=== PATIENT | male | born 1985 | race Caucasian/White ===

== ENCOUNTER 2016-07-09 18:44 | Emergency (ER) | payer OTHER ==
[~2016-07-09] VITALS: Ht 170.2 cm; Wt 104.3 kg
[~2016-07-09 18:44] MED LIST: ALBUTEROL0.63 MG/3 INH/SOL; ALBUTEROL2.5 MG/3 M INH/SOL; ALPRAZOLAM1 MG PO; ATIVAN0.5 M1 PO; AZITHROMYC200 MG/5 M PO; BENZONATATE200 M1 PO; CLEOCIN HCL300 M1 PO; CLINDAMYCI75 MG/5 M1 PO; HYDROCODONE/ACE1 TA1 PO; LEVSIN/SL0.125 MG SL; MEDROL DOSEPAK1 PAC PO; MEDROL4 M2 PO; MOBIC15 M1 PO; MOTRIN 400MG (400 MG PO; MOTRIN 600 MG600 MG PO; NOVAPLUS V0.09 MG/Ac INH; ORAPRED15 MG/5 ML PO; PERCOCET 325 MG1 TA2 PO; PERCOCET 5-3251 EACH PO; PROVENTIL HFA6.7 GM INH; PROVENTIL0.09 MG/A1 INH; ROBITUSSIN W/CO10 ML PO; SERTRALINE HYDR50 MG PO; TESSALON PERLE100 MG PO; TRAMADOL50 MG PO; VENTOLIN1 PUF INH; ZITHROMAX Z-PA250 M1 PO; ZOFRAN4 M1 SL; nebulizer MC
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
--- NOTE | 2016-07-09 19:57 | RADIOLOGY REPORT ---
EXAMINATION: Chest and left RIBS CLINICAL INFORMATION: Left rib pain. COMPARISON: Chest x-ray 09/14/2015 TECHNIQUE: Single view chest with expiration. 3 oblique views of left ribs. FINDINGS: No acute abnormality. Lungs are clear. No consolidation, pneumothorax, or pleural effusion. The cardiomediastinal silhouette and pulmonary vasculature are normal. Osseous structures are unremarkable. Ribs are intact. No fractures are identified. IMPRESSION: Unremarkable examination.
[2016-07-09] MEDS ORDERED: ROXICODONE5 M1 PO (20:26)
[2016-07-09] MEDS ORDERED: MOBIC15 M1 PO (20:26)
[2016-07-09 20:35] VITALS: BP 168/105
== END 2016-07-09 20:38 ==
LOC: ERH 18:44
DX: S20.211A Contusion of right front wall of thorax, initial encounter (principal); V86.59XA Driver of other special all-terrain or other off-road motor vehicle injured in nontraffic accident, initial encounter
CPT/HCPCS: 71100-LT

== ENCOUNTER 2016-07-26 22:22 | Emergency (ER) | payer OTHER ==
[~2016-07-26] VITALS: Ht 170.2 cm; Wt 108.9 kg
[~2016-07-26 22:22] MED LIST changes: +ROXICODONE5 M1 PO
[2016-07-26 22:56] VITALS: BP 197/85
--- NOTE | 2016-07-26 23:17 | ED GENERAL ADULT ---
History of Present Illness General Chief Complaint: General Adult Stated Complaint: PT LYMPH NODE IS SWOLLEN ON THE LEFT SIDE Source: patient, old records, friend Exam Limitations: no limitations Vital Signs & Intake/Output Vital Signs & Intake/Output Vital Signs Date Time Temp Pulse Resp B/P Pulse O2 O2 Flow FiO2 Ox Delivery Rate 07/26 2256 99.0 124 18 197/85 98 Room Air ED Intake and Output 07/27 0000 07/26 1200 Intake Total 0 Output Total Balance 0 Intake, Oral 0 Patient 240 lb Weight Allergies Coded Allergies: Penicillins (Severe, THROAT CLOSURE 04/21/16) amoxicillin (Intermediate, ITCHING AND VOMITING 04/21/16) acetaminophen (From VICODIN) (UPSET STOMACH 07/09/16) hydrocodone (From VICODIN) (UPSET STOMACH 07/09/16) lactose (LACTOSE INTOLERANT 05/17/16) tramadol (SWELLING 07/09/16) Reconcile Medications Albuterol Sulfate (Proventil Hfa) 90 MCG HFA.AER.AD 2 PUF INH Q4 cough Benzonatate 200 MG CAPSULE 1 CAP PO TIDPRN cough Clindamycin Palmitate HCl (Clindamycin Pediatric) 75 MG/5 ML SOLN.RECON 20 ML PO TID INFECTION TAKE 4 TSP/20 ML/300 MG THREE TIMES A DAY FOR 10 DAYS Meloxicam (Mobic) 15 MG TABLET 1 TAB PO DAILY PRN PAIN Oxycodone HCl 5 MG TABLET 1 TAB PO Q6 PRN pain Oxycodone HCl (Roxicodone) 5 MG TABLET 1 TAB PO TID PRN PAIN Triage Note: PT TO ED REQUESTING JAYLEN SANCHEZ BLOOD TEST. HAS HAD SWOLLEN LYMPH GLANDS OF LEFT SIDE OF FACE, LOWER JAW AREA FOR 4 MIONTHS. HAS HAD MULTIPLE CT'S AND BLOOD WORK AT [place]. HAD A BIOPSY DONE. STATES WAS NOT TESTED FOR JAYLEN SANCHEZ. 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 yes HPI: Patient is a 31-year-old male presents for evaluation of swollen and painful lymph node to the left submandibular area. Patient reports that he has had a swollen lymph node for approximately 4-5 months. Patient has been seen in the emergency department, by his primary care doctor in by an ear nose and throat doctor. Patient has been on multiple rounds of antibiotics and believes that the swelling may have improved after one of the rounds of antibiotics but then the swelling returns. Patient had a needle biopsy to urinate but it was inconclusive. On Friday patient is scheduled to have lymph node excised for further testing at [facility]. Patient presented this evening because he is concerned that he may have Jaylen-Sanchez virus causing his symptoms and he does not believe that he has been tested for this. Pain is currently moderate, worsens with palpation. Patient reports severe associated anxiety. Positive intermittent body aches. Denies fevers (LONNIE KENT) Past History Travel History Traveled to [place] past 21 day No Medical History Any Pertinent Medical History? 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 No (LONNIE KENT) Review of Systems Review of Systems Constitutional: Denies: chills, fever. EENTM: Reports: see HPI. Respiratory: Denies: short of breath. Cardiovascular: Denies: chest pain. GI: Denies: abdominal pain. Musculoskeletal: Reports: back pain, neck pain. Skin: Denies: rash. Neurological/Psychological: Reports: anxiety. Hematologic/Endocrine: Reports: no symptoms. Immunologic/Allergic: Reports: lymphadenopathy. (LONNIE KENT) Physical Exam Physical Exam General Appearance: alert, awake, anxious Head: atraumatic Eyes: Bilateral: normal appearance, PERRL, EOMI. Ears, Nose, Throat: normal pharynx, hearing grossly normal Neck: left submandibular 2-3cm tender mobile lymph node. Respiratory: normal breath sounds, chest non-tender, no respiratory distress, lungs clear Cardiovascular: regular rate/rhythm Back: normal inspection, normal range of motion, bilateral lumbar paraspinal tenderness. No midline tenderness Extremities: normal inspection, normal capillary refill, normal range of motion, no edema Neurologic/Psych: awake, alert, oriented x 3, anxious appearing Skin: intact, normal color Lymphatic: adenopathy (left submandibular) Core Measures ACS in differential dx? No CVA/TIA Diagnosis: No Severe Sepsis Present: No Septic Shock Present: No (LONNIE KENT) Progress Differential Diagnoses I considered the following diagnoses in my evaluation of the patient: Malignancy , infected lymph node, viral infection Plan of Care: Previous records reviewed. Patient has had blood work, CT scan of the neck, CT scan of the chest x-ray from hospital. Patient has been seen by his primary doctor and by an early education teacher. Patient has appointment for a lymph node excision on Friday. Further labs and imaging deferred. Patient appears stable to follow up on Friday for further evaluation Initial ED EKG: none (LONNIE KENT) Departure Departure Time of Disposition: 2332 Disposition: HOME OR SELF CARE Condition: Stable Clinical Impression Primary Impression: Lymphadenopathy of head and neck region Referrals: NIKKI ARMSTRONG MD (PCP/Family) Additional Instructions: Follow-up with the surgeon at [facility] on Friday as scheduled. Departure Forms: Customer Survey General Discharge Information Prescriptions: Current Visit Scripts Oxycodone HCl 1 TAB PO Q6 PRN pain #8 TAB (LONNIE KENT) PA/VIRTUAL RECRUITER Co-Sign Statement Statement: ED Attending supervision documentation- [] I saw and evaluated the patient. I have also reviewed all the pertinent lab results and diagnostic results. I agree with the findings and the plan of care as documented in the PA's/VIRTUAL RECRUITER's documentation. [X] I have reviewed the ED Record and agree with the PA's/VIRTUAL RECRUITER's documentation. [] Additions or exceptions (if any) to the PAs/VIRTUAL RECRUITER's note and plan are summarized below: [] (BOBBI JEFFERSON,DUANE Hayward) Critical Care Note Critical Care Note Critical Care Time: non-applicable (LONNIE KENT)
[2016-07-26] MEDS ORDERED: OXYCODONE HCL5 M1 PO (23:34)
== END 2016-07-26 23:44 ==
LOC: ERH 22:22
DX: R59.1 Generalized enlarged lymph nodes (principal)

== ENCOUNTER 2016-07-30 20:16 | Emergency (ER) | payer OTHER ==
[~2016-07-30] VITALS: Ht 170.2 cm; Wt 108.9 kg
[~2016-07-30 20:16] MED LIST changes: +OXYCODONE HCL5 M1 PO
--- NOTE | 2016-07-30 20:54 | ED CARDIAC/CP/PALPITATIONS ---
History of Present Illness General Chief Complaint: General Adult Stated Complaint: DIZZY, HEART PALPITATIONS, ANXIETY Source: patient Exam Limitations: no limitations Vital Signs & Intake/Output Vital Signs & Intake/Output Vital Signs Date Time Temp Pulse Resp B/P Pulse O2 O2 Flow FiO2 Ox Delivery Rate 07/30 2020 99.3 130 20 98 Room Air Allergies Coded Allergies: Penicillins (Severe, THROAT CLOSURE 04/21/16) amoxicillin (Intermediate, ITCHING AND VOMITING 04/21/16) acetaminophen (From VICODIN) (UPSET STOMACH 07/09/16) hydrocodone (From VICODIN) (UPSET STOMACH 07/09/16) lactose (LACTOSE INTOLERANT 05/17/16) tramadol (SWELLING 07/09/16) Reconcile Medications Albuterol Sulfate (Proventil Hfa) 90 MCG HFA.AER.AD 2 PUF INH Q4 cough Benzonatate 200 MG CAPSULE 1 CAP PO TIDPRN cough Clindamycin Palmitate HCl (Clindamycin Pediatric) 75 MG/5 ML SOLN.RECON 20 ML PO TID INFECTION TAKE 4 TSP/20 ML/300 MG THREE TIMES A DAY FOR 10 DAYS Meloxicam (Mobic) 15 MG TABLET 1 TAB PO DAILY PRN PAIN Oxycodone HCl 5 MG TABLET 1 TAB PO Q6 PRN pain Oxycodone HCl (Roxicodone) 5 MG TABLET 1 TAB PO TID PRN PAIN Triage Note: PT TO TRIAGE WITH C/O PALPITATIONS, DIZZINESS, ANXIETY, NAUSEA, VOMITING STARTED AROUND 3PM S/P NECK LYMPH NODE SURGERY AT [facility]. HR 130 IN TRIAGE. PT REFUSED EKG IN TRIAGE. Triage Nurses Notes Reviewed? yes HPI: Patient presents for evaluation of dizziness heart palpitations and anxiety. He just had lymph node surgery with lymph node resection over the left side of his neck anteriorly earlier today. He was medicated with fentanyl and Dilaudid and Percocet (last dose is being about 3:00 this afternoon). Since then he has had vomiting and a rapid heartbeat. He denies any associated bleeding or diarrhea. He likewise denies chest pain dyspnea or leg pains. He has been suffering from a head cold symptoms over the past few days and his PO intake has been diminished. Patient describes his symptoms as severe and constant but fluctuating in intensity. Nothing seems to make him feel better. Past History Travel History Traveled to [place] past 21 day No Medical History Any Pertinent Medical History? 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 No Review of Systems Review of Systems Constitutional: Reports: no symptoms. EENTM: Reports: no symptoms. Respiratory: Reports: no symptoms. Cardiovascular: Reports: see HPI. GI: Reports: no symptoms. Genitourinary: Reports: no symptoms. Musculoskeletal: Reports: no symptoms. Skin: Reports: no symptoms. Neurological/Psychological: Reports: see HPI. Hematologic/Endocrine: Reports: no symptoms. Immunologic/Allergic: Reports: no symptoms. All Other Systems: Reviewed and Negative Physical Exam Physical Exam Cardiovascular: see below Comments: Gen.: Well-nourished, well-developed, no acute respiratory distress. Head: Normocephalic, atraumatic. Eyes: Normal inspection bilaterally Ears: Normal inspection bilaterally Nose: Normal inspection Throat/mouth : Moist mucosa Neck: Supple, full range of motion, no goiter Heart: Rapid but otherwise Regular rate and rhythm, no murmurs rubs or gallops Lungs: Clear to auscultation bilaterally with normal air entry Chest: Nontender Back: Normal range of motion Abdomen: Soft, nontender, nondistended, normal bowel sounds Extremities: Normal range of motion grossly, equal radial pulses, no cyanosis clubbing or edema Neurologic: Cranial nerves grossly intact, speech is clear Skin: warm and dry Psychiatric: Anxious but cooperative, no apparent delusions or hallucinations Core Measures ACS in differential dx? No Severe Sepsis Present: No Septic Shock Present: No Progress Differential Diagnosis: DEHYDRATION, ANESTHETIC SIDE EFFECT, MEDICATION SIDE EFFECT, ANXIETY, HYPERTHYROIDISM Plan of Care: Orders Procedure Date/time Status THYROID STIMULATING HORMONE 07/30 2052 Complete TROPONIN LEVEL 07/30 2052 Complete MAGNESIUM 07/30 2052 Complete CBC WITHOUT DIFFERENTIAL 07/30 2052 Complete BASIC METABOLIC PANEL 07/30 2052 Complete EKG 07/30 2025 Active Laboratory Tests 07/30/162104: Anion Gap 12, Estimated GFR > 60, BUN/Creatinine Ratio 18.8, Glucose 138 H, Calcium 9.2, Magnesium 1.7, Troponin I < 0.01, TSH 0.510, CBC w Diff NO MAN DIFF REQ, RBC 5.19, MCV 84.6, MCH 28.1, RDW 13.6, MPV 7.7, Gran % 84.5 H, Lymphocytes % 9.7 L, Monocytes % 5.3, Eosinophils % 0.2, Basophils % 0.3, Absolute Granulocytes 13.6 H, Absolute Lymphocytes 1.6, Absolute Monocytes 0.9 H, Absolute Eosinophils 0, Absolute Basophils 0, PUBS MCHC 33.2 Initial ED EKG: SINUS TACHYCARDIA WITH A HEART RATE OF 128, NO s1 Q3 t3. Prior EKG: changed (NORMAL HEART RATE ON PRIOR) Comments: 07/30/2016 10:36:32 PM AFTER A NORMAL SALINE FLUID BOLUS AND IV PHENERGAN, ANDRES is sound asleep at this point. His heart rate is 90. I feel he is now stable for discharge. Departure Departure Disposition: HOME OR SELF CARE Condition: Stable Clinical Impression Primary Impression: Anxiety Referrals: NIKKI ARMSTRONG MD (PCP/Family) Additional Instructions: Stop taking the Zofran and take Phenergan for any nausea or vomiting. Stop taking the Percocet and substitute [place]. Do not take the pain medications on an empty stomach. Begin with a clear liquid diet and advance as tolerated. Follow-up with your primary care doctor or a psychiatrist if not improving over the next 24-48 hours. Return if any concerns or sudden worsening. Thank you for choosing the [facility] Emergency Department for your care. It was a pleasure to serve you today. Yan Weiner M.D. [facility] Departure Forms: Customer Survey General Discharge Information Prescriptions: Current Visit Scripts Hydrocodone/Acetaminophen ([place] 5-325 Tablet) 1-2 TAB PO Q6P PRN PAIN #20 TAB Promethazine HCl 1-2 TAB PO Q6P PRN NAUSEA/VOMITING #20 TAB Critical Care Note Critical Care Note Critical Care Time: 30-74 min
[2016-07-30 21:16] LABS: ABSOLUTE BASOPHIL COUNT 0 /CUMM (0.0-0.2); ABSOLUTE EOSINOPHIL COUNT 0 /CUMM (0.0-0.7); ABSOLUTE GRANULOCYTE CT 13.6 /CUMM (1.4-6.5); ABSOLUTE LYMPH COUNT 1.6 /CUMM (1.2-3.4); ABSOLUTE MONOCYTE COUNT 0.9 /CUMM (0.10-0.60); BASOPHIL % 0.3 % (0.0-2.0); EOSINOPHIL % 0.2 % (0-5); HEMATOCRIT 43.9 % (42-52); MEAN CORPUSCULAR HGB 28.1 PG (27.0-31.0); MEAN CORPUSCULAR HGB CONC 33.2 G/DL (33.0-37.0); MEAN CORPUSCULAR VOLUME 84.6 FL (80.0-94.0); MEAN PLATELET VOLUME 7.7 FL (7.4-10.4); PLATELET COUNT 221 /CUMM (130-400); RBC DISTRIBUTION WIDTH 13.6 % (11.5-14.5); RED BLOOD CELL CT 5.19 /CUMM (4.70-6.10); WHITE BLOOD CELL COUNT 16.1 /CUMM (4.8-10.8)
[2016-07-30 21:17] LABS: GRANULOCYTE % 84.5 % (42.2-75.2)
[2016-07-30] MEDS ORDERED: NORCO 5-325 TA1 EACH PO (22:38)
[2016-07-30] MEDS ORDERED: PROMETHAZINE HC25 M3 PO (22:38)
[2016-07-30 22:55] VITALS: BP 145/88
== END 2016-07-30 22:56 ==
LOC: ERH 20:16
PROVIDERS: Emergency Medicine
DX: F41.9 Anxiety disorder, unspecified (principal)
CPT/HCPCS: 93005; 93010; 96374; J2550

== ENCOUNTER 2016-07-31 11:51 | Emergency (ER) | payer OTHER ==
[~2016-07-31] VITALS: Ht 170.2 cm; Wt 108.9 kg
[~2016-07-31 11:51] MED LIST changes: +NORCO 5-325 TA1 EACH PO; +PROMETHAZINE HC25 M3 PO
[2016-07-31 11:55] VITALS: BP 180/106
--- NOTE | 2016-07-31 12:37 | ED DYSPNEA/ASTHMA COMPLAINT ---
History of Present Illness General Chief Complaint: Upper Respiratory Sx/Fever Stated Complaint: ?PNUEMONIA Source: patient Exam Limitations: no limitations Vital Signs & Intake/Output Vital Signs & Intake/Output Vital Signs Date Time Temp Pulse Resp B/P Pulse O2 O2 Flow FiO2 Ox Delivery Rate 07/31 1251 97 Room Air 07/31 1155 99.7 106 18 180/106 97 Room Air Allergies Coded Allergies: Penicillins (Severe, THROAT CLOSURE 04/21/16) amoxicillin (Intermediate, ITCHING AND VOMITING 04/21/16) acetaminophen (From VICODIN) (UPSET STOMACH 07/09/16) hydrocodone (From VICODIN) (UPSET STOMACH 07/09/16) lactose (LACTOSE INTOLERANT 05/17/16) tramadol (SWELLING 07/09/16) Reconcile Medications Albuterol Sulfate (Proventil Hfa) 90 MCG HFA.AER.AD 2 PUF INH Q4 cough Benzonatate 200 MG CAPSULE 1 CAP PO TIDPRN cough Clindamycin Palmitate HCl (Clindamycin Pediatric) 75 MG/5 ML SOLN.RECON 20 ML PO TID INFECTION TAKE 4 TSP/20 ML/300 MG THREE TIMES A DAY FOR 10 DAYS Hydrocodone/Acetaminophen ([place] 5-325 Tablet) 5 MG-325 MG TABLET 1-2 TAB PO Q6P PRN PAIN Meloxicam (Mobic) 15 MG TABLET 1 TAB PO DAILY PRN PAIN Oxycodone HCl 5 MG TABLET 1 TAB PO Q6 PRN pain Oxycodone HCl (Roxicodone) 5 MG TABLET 1 TAB PO TID PRN PAIN Promethazine HCl 25 MG TABLET 1-2 TAB PO Q6P PRN NAUSEA/VOMITING Triage Note: 31 Y/O MALE STATING HE WAS ADVISED TO COME TO ED TO R/O PNEUMONIA. STATES HE HAD LYMPH NODE SURGERY AT [facility] YESTERDAY AND THEN WAS EVAL'D IN [facility] FOR REACTION TO MEDICATIONS AND DEHYDRATION. TODAY NOTICED UPPER BACK PAIN AND COUGH WITH YELLOW PHLEGM. TOOK 1/2 TAB PERCOCET AND 600MG MOTRIN WITH NO RELIEF. TEMP 99.6 Triage Nurses Notes Reviewed? yes HPI: This patient is a 31-year-old male who presented to the emergency department today to rule out pneumonia. The patient had a left sided lymph node surgery/ removal to his neck yesterday. The patient was seen here in the emergency yesterday for vomiting and pain. He has a prescription for both Vicodin and Percocet, both of which he reported give him some GI upset and vomiting. He is requesting a prescription for oxycodone. The patient reported that he had a cold prior to the surgery with a stuffy nose and cough. He spoke to the nurse that took care of him yesterday after his surgery at [facility] and she advised him to come to the emergency department to rule out pneumonia. The patient denied any fevers or chills. He reported that he has anxiety, "white coat syndrome and hypochondriasis." He reported that he is very worried about having pneumonia and it is making him very anxious. He reported that whenever he comes to the hospital his blood pressure is high because his anxiety gets worse. (NELIDA KNOX PA-C) Past History Travel History Traveled to [place] past 21 day No Medical History Any Pertinent Medical History? 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 No (NELIDA KNOX PA-C) Review of Systems Review of Systems Constitutional: Reports: no symptoms. EENTM: Reports: see HPI. Respiratory: Reports: see HPI. Cardiovascular: Reports: no symptoms. GI: Reports: see HPI. Musculoskeletal: Reports: no symptoms. Skin: Reports: no symptoms. Neurological/Psychological: Reports: no symptoms. All Other Systems: Reviewed and Negative (NELIDA KNOX PA-C) Physical Exam Physical Exam Respiratory: normal breath sounds, chest non-tender, no respiratory distress, no wheezes, rales, rhonchi. No diminished breath sounds or stridor Comments: Well-developed well-nourished person who is anxious HEENT: Normal EENT exam, head normocephalic/atraumatic Neck: Supple. Dressing in place over surgical incision the left side of the neck which is clean and dry and intact. Mild amount of surrounding swelling with no surrounding erythema. Full range of motion Back: Normal gait Cardiovascular: Regular rate and rhythm with no murmurs, rubs, or gallops Respiratory: Chest nontender. No respiratory distress. Breath sounds clear to auscultation bilaterally Extremity: Normal equal pulses Neuro: Alert oriented x3, cranial nerves II through XII grossly intact. Skin: No appreciable rash on exposed skin, skin is warm and dry. Psych: Mood and affect is normal Core Measures ACS in differential dx? Yes Severe Sepsis Present: No Septic Shock Present: No (ABILIO AMADOR,NELIDA) Progress Differential Diagnosis: asthma, AMI, bronchitis, costochondritis, CHF, COPD, pulmonary embolism, pneumonia, pneumothorax, unstable angina, anxiety Plan of Care: This patient is a 31-year-old male with a significant history of anxiety who presented to the emergency department today for evaluation of cough to rule out pneumonia. This patient was seen here in the emergency yesterday and had a full workup including a cardiac workup with EKG and troponin levels. This patient is postop from lymph node removal to left side of his neck yesterday. The patient is requesting oxycodone. I discussed with this patient extensively that I do not feel comfortable prescribing a new prescription for another narcotic medication as he already has active prescriptions for both Percocet and Vicodin. Advised the patient to call his prescribing surgeon for any medication refills or medication changes. This patient is afebrile. Stable for discharge home. Diagnostic Imaging: Viewed by Me: Radiology Read. Discussed w/RAD: Radiology Read. CXR Impression: PATIENT: ANDRES FULLER PRESENT AGE: 31 PATIENT ACCOUNT NO: [id number] : 87 LOCATION: [facility] ORDERING PHYSICIAN: NELIDA KNOX PA-C SERVICE DATE: 07/31/16 EXAM TYPE: RAD - XRY-CHEST XRAY, PA AND LATERAL EXAMINATION: XR CHEST CLINICAL INFORMATION: Rule out pneumonia COMPARISON: 09/14/2015 TECHNIQUE: 2 views of the chest were obtained. FINDINGS: No convincing evidence for an acute process. Lung quispe are grossly clear. The heart size is normal. The hilar structures do not appear enlarged. IMPRESSION: No convincing evidence for an acute process. DICTATED BY: CARTER CORRALES MD DATE/TIME DICTATED:07/31/161311 [employer] SUPERINTENDENT:ASIYA DATE/TIME TRANSCRIBED:07/31/161311 CONFIDENTIAL, DO NOT COPY WITHOUT APPROPRIATE AUTHORIZATION. <Electronically signed in Other Vendor System> SIGNED BY: CARTER CORRALES MD 07/31/16 1317 Initial ED EKG: none (NELIDA KNOX PA-C) Departure Departure Disposition: HOME OR SELF CARE Condition: Stable Clinical Impression Primary Impression: Viral syndrome Referrals: PATIENT HAS NO PRIMARY CARE DR (PCP/Family) Additional Instructions: Continue to take all previously medication as prescribed. Please touch base with your surgeon to discuss any medication changes. Rest and be sure to stay hydrated. Return for any worsening symptoms or concerns. Departure Forms: Customer Survey General Discharge Information (NELIDA KNOX PA-C) PA/[employer] Co-Sign Statement Statement: ED Attending supervision documentation- [] I saw and evaluated the patient. I have also reviewed all the pertinent lab results and diagnostic results. I agree with the findings and the plan of care as documented in the PA's/[employer]'s documentation. x I have reviewed the ED Record and agree with the PA's/[employer]'s documentation. [] Additions or exceptions (if any) to the PAs/[employer]'s note and plan are summarized below: [] (TELMA JEFFERSON,ISABELLA) Critical Care Note Critical Care Note Critical Care Time: non-applicable (NELIDA KNOX PA-C)
--- NOTE | 2016-07-31 13:17 | RADIOLOGY REPORT ---
EXAMINATION: XR CHEST CLINICAL INFORMATION: Rule out pneumonia COMPARISON: 09/14/2015 TECHNIQUE: 2 views of the chest were obtained. FINDINGS: No convincing evidence for an acute process. Lung quispe are grossly clear. The heart size is normal. The hilar structures do not appear enlarged. IMPRESSION: No convincing evidence for an acute process.
== END 2016-07-31 13:44 ==
LOC: ERH 11:51
DX: B34.9 Viral infection, unspecified (principal)

== ENCOUNTER 2016-08-21 15:42 | Emergency (ER) | payer OTHER ==
[~2016-08-21] VITALS: Ht 170.2 cm; Wt 104.3 kg
[2016-08-21 16:02] VITALS: BP 156/94
== END 2016-08-21 16:55 | disposition admitted as inpatient to this hospital (09) ==
LOC: ERH 15:42
DX: R07.9 Chest pain, unspecified (principal); R11.10 Vomiting, unspecified; R19.7 Diarrhea, unspecified; Z53.21 Procedure and treatment not carried out due to patient leaving prior to being seen by health care provider
CPT/HCPCS: 93005; 93010; 99281